=== PATIENT | female | born 1975 | race Caucasian/White ===

== ENCOUNTER 2020-03-30 19:40 | Emergency (ER) | payer BC ==
[2020-03-30] MEDS ORDERED: valACYclovir 1,000 MG Tab PO STA (20:55)
--- NOTE | 2020-03-30 21:04 | EDM.PDOC ---
ED HPI GENERAL MEDICAL PROBLEM - General Chief Complaint: General Stated Complaint: HEADACHE,LOWER JAW PAIN Time Seen by Provider: 03/30/20 20:45 Source of Information: Reports: Patient, RN History Limitations: Reports: No Limitations - History of Present Illness INITIAL COMMENTS - FREE TEXT/NARRATIVE: 45 yo female with a couple day hx of GI[place]ANO and L sided facial pain and today noticed some blisters on scalp on the left side. No fever. No definite dental pain. Onset: Gradual Onset Date: 03/28/20 Duration: Day(s):, Getting Worse Location: Reports: Head (L side), Face Quality: Reports: Ache Severity: Moderate Improves with: Reports: None Worsens with: Reports: Other (time) Context: Reports: Other (see HPI) Associated Symptoms: Reports: Headaches, Rash. Denies: Fever/Chills, Seizure Treatments TEACHERS' ASSISTANT: Reports: Acetaminophen Jaw Pain Score (Numeric/FACES): 9 - Related Data Allergies Allergy/AdvReac Type Severity Reaction Status Date / Time *anti-malaria med Allergy Severe Hives Uncoded 03/30/20 20:28 Home Meds: Home Meds SUMAtriptan succinate [Imitrex] 100 mg PO ASDIRECTED PRN 03/30/20 [History] valACYclovir [Valtrex] 1,000 mg PO Q8H #20 tablet 03/30/20 [Rx] Past Medical History HEENT History: Reports: Impaired Vision RN STAFFING History: Reports: Neurological History: Reports: Migraines Hematologic History: Reports: Anemia Dermatologic History: Reports: Urticaria - Infectious Disease History Infectious Disease History: Reports: Chicken Pox - Past Surgical History Female Surgical History: Reports: Section Social & Family History - Tobacco Use Smoking Status *Q: Never Smoker - Recreational Drug Use Recreational Drug Use: No ED ROS GENERAL - Review of Systems Review Of Systems: See Below Constitutional: Reports: No Symptoms HEENT: Reports: No Symptoms, Other (pain to the left side of face.) Respiratory: Reports: No Symptoms Cardiovascular: Reports: No Symptoms GI/Abdominal: Reports: No Symptoms Skin: Reports: Rash (L scalp) Neurological: Reports: Headache Psychiatric: Reports: No Symptoms ED EXAM, GENERAL - Physical Exam Exam: See Below Exam Limited By: No Limitations General Appearance: Alert, WD/WN, No Apparent Distress Eye Exam: Bilateral Eye: Normal Inspection Ears: Normal External Exam, Normal Canal, Hearing Grossly Normal, Normal TMs Ear Exam: Bilateral Ear: Auricle Normal, Canal Normal, TM normal Nose: Normal Inspection, No Blood Throat/Mouth: Normal Inspection, Normal Lips, Normal Oropharynx, Normal Voice, No Airway Compromise, Other (teeth normal) Head: Atraumatic, Normocephalic, Facial Tenderness (L side) Neck: Normal Inspection, Lymphadenopathy (L). No: Lymphadenopathy (R) Respiratory/Chest: No Respiratory Distress, Lungs Clear, Normal Breath Sounds, No Accessory Muscle Use Cardiovascular: Regular Rate, Rhythm Extremities: Normal Inspection Neurological: Alert, Oriented, CN II-XII Intact, Normal Cognition, No Motor/ Sensory Deficits Psychiatric: Normal Affect, Normal Mood Skin Exam: Warm, Dry, Intact, Normal Color, Zoster-Like Rash (scalp L side). No : No Rash Course - Vital Signs Last Recorded V/S: Last Vital Signs Temp 36.3 C 03/30/20 20:30 Pulse 68 03/30/20 20:30 Resp 14 03/30/20 20:30 BP 121/62 03/30/20 20:30 Pulse Ox 98 03/30/20 20:30 - Orders/Labs/Meds Meds: Medications Discontinued Medications Generic Name Dose Route Start Last Admin Trade Name Freq PRN Reason Stop Dose Admin Valacyclovir HCl 1,000 mg 03/30/20 20:55 Valtrex PO 03/30/20 20:56 NOW STA Departure - Departure Time of Disposition: 21:10 Disposition: Home, Self-Care 01 Condition: Fair Clinical Impression: Shingles Qualifiers: Herpes zoster complications: without complications Qualified Code(s): B02.9 - Zoster without complications - Discharge Information *PRESCRIPTION DRUG MONITORING PROGRAM REVIEWED*: No *COPY OF PRESCRIPTION DRUG MONITORING REPORT IN PATIENT PK: No Prescriptions: valACYclovir [Valtrex] 1,000 mg PO Q8H #20 tablet Instructions: Shingles, Gtph-hy-Sauc Referrals: PCP,None [Primary Care Provider] - Additional Instructions: Take valcyclovir as directed until gone. Use ibuprofen and if needed [place] for added relief. Recheck if you run out of pain meds and need more of if you have any L eye involvement. Sepsis Event Note - Evaluation Sepsis Screening Result: No Definite Risk - Focused Exam Vital Signs: Vital Signs Temp Pulse Resp BP Pulse Ox 03/30/20 20:30 36.3 C 68 14 121/62 98 03/30/20 20:19 36.3 C 68 14 121/62 98 Date Exam was Performed: 03/30/20 Time Exam was Performed: 20:59
== END 2020-03-30 21:23 | disposition home or self-care (01) ==
LOC: JP.ED 19:40
DX: B02.9 Zoster without complications (principal); Z88.8 Allergy status to other drugs, medicaments and biological substances
CPT/HCPCS: 99283; A9270